=== PATIENT | female | born 1955 | race Caucasian/White ===

== ENCOUNTER → 2016-10-30 | Outpatient (CLI) | payer OTHER ==
[~2016-10-30] MED LIST: ESCI20TA PO; GLAT20KI3 SQ; PANT40TA3 PO
[2016-10-30 17:06] VITALS: BP 117/115
--- NOTE | 2016-10-30 17:06 | Urgent Care T Sheet Gen (E) ---
Intake General Temperature (Fahrenheit): 98.1 Pulse: 82 Blood Pressure Systolic: 117 Blood Pressure Diastolic: 115 Respirations: 18 SPO2: 96 Description of Symptoms Patient presents with feeling "strange" since Sunday. Notes JAVIER including head pounding, dizziness, feeling like she is going to pass out and visual problems. Nurse at work checked her BP on Sunday and said it was high. Went to [facility] earlier and her BP was 185/107. No history of BP disorders however strong family history. History of Present Illness Allergies: Coded Allergies: No Known Drug Allergies (Unverified , 06/16/14) Home Meds Reported Medications Pantoprazole Sodium 40 Mg Tablet.dr40 Mg PO DAILY 06/16/14 Escitalopram Oxalate (Lexapro)20 Mg Wnsloz45 Mg PO DAILY 06/16/14 Glatiramer Acetate (Copaxone)20 Mg Kit20 Mg SQ DAILY 06/16/14 Respiratory Constitutional Symptoms: No syptoms reported Neurological: Headache All Other Systems Reviewed Remaining Systems: All other systems reviewed with negative findings Past Dxcaems-Fffuxi-Auidcb Hx Patient's Social History Recent foreign travel: No Respiratory Respiratory History: None Cardiovascular Cardiovascular History: Chest Pain Neuro/Muscular Comment: bulging disc in L4 Reproductive System Sexually Transmitted Diseases: No Gastrointestinal GI/Endocrine History: None HEENT Impaired Vision: Glasses Hearing Impaired: None Psychosocial Behavior Disorders: Depression Physical Exam Physical Exam General Appearance: WD/WN No apparent distress Departure Urgent Care Impression Impression: Primary Impression: Elevated blood-pressure reading without diagnosis of hypertension Departure Departed Disposition: To [facility] ED Condition: Stable Referrals: ALEYDA NEGRETE MD (PCP) Additional Instructions: Sent to ER for workup and treatment. Arriving via private vehicle. Son is driving her. Patient understands DC instructions. All questions were answered. End of report . JORGE L MURO October 30, 2016 17:06
== END ==
LOC: MHUC 16:42
PROVIDERS: ATTEND Physician Assistant
DX: R03.0 Elevated blood-pressure reading, without diagnosis of hypertension (principal)